=== PATIENT | female | born 1990 | race Two or more races ===

== ENCOUNTER 2018-10-30 11:03 | Inpatient (IN) | payer OTHER ==
[~2018-10-30] VITALS: Ht 160 cm; Wt 99.8 kg
[2018-10-30] MEDS ORDERED: PRENATAL CAPLE1 EAC1 PO (12:08)
[2018-10-30] MEDS ORDERED: IRON325 MG PO (12:08)
== END 2018-11-01 10:03 | disposition home or self-care (01) | DRG 833 ==
LOC: LDR 11:03 → OB/GYN 11:03
PROVIDERS: ADMIT Obstetrics & Gynecology
PROC: BY4FZZZ Ultrasonography of Third Trimester, Single Fetus (ICD-10-PCS; principal; 2018-10-30)
PROC: 4A1HXCZ Monitoring of Products of Conception, Cardiac Rate, External Approach (ICD-10-PCS; 2018-10-30)
DX: O47.03 False labor before 37 completed weeks of gestation, third trimester (principal); Z34.03 Encounter for supervision of normal first pregnancy, third trimester

== ENCOUNTER 2018-11-16 18:28 | Outpatient (CLI) | payer OTHER ==
[~2018-11-16 18:28] MED LIST: IRON325 MG PO; PRENATAL CAPLE1 EAC1 PO
[2018-11-17] MEDS ORDERED: KEFLEX500 MG PO (11:52)
== END 2018-11-17 13:34 | disposition home or self-care (01) ==
LOC: OBS/DEL 18:28
DX: O26.893 Other specified pregnancy related conditions, third trimester (principal); R10.2 Pelvic and perineal pain; Z34.83 Encounter for supervision of other normal pregnancy, third trimester

== ENCOUNTER 2018-11-25 05:59 | Inpatient (IN) | payer OTHER ==
[~2018-11-25] VITALS: Ht 160 cm; Wt 99.8 kg
[~2018-11-25 05:59] MED LIST changes: +KEFLEX500 MG PO; -PRENATAL CAPLE1 EAC1 PO
[2018-11-25] MEDS ORDERED: PRENATAL CAPLE1 EAC1 PO (08:12)
== END 2018-11-27 09:22 | disposition home or self-care (01) | DRG 807 ==
LOC: LDR 05:59 → OB/GYN 13:27
PROVIDERS: ADMIT Obstetrics & Gynecology
PROC: 10E0XZZ Delivery of Products of Conception, External Approach (ICD-10-PCS; principal; 2018-11-25)
PROC: 0HQ9XZZ Repair Perineum Skin, External Approach (ICD-10-PCS; 2018-11-25)
PROC: 10907ZC Drainage of Amniotic Fluid, Therapeutic from Products of Conception, Via Natural or Artificial Opening (ICD-10-PCS; 2018-11-25)
PROC: 3E0P7VZ Introduction of Hormone into Female Reproductive, Via Natural or Artificial Opening (ICD-10-PCS; 2018-11-25)
PROC: 3E033VJ Introduction of Other Hormone into Peripheral Vein, Percutaneous Approach (ICD-10-PCS; 2018-11-25)
PROC: 4A1HXCZ Monitoring of Products of Conception, Cardiac Rate, External Approach (ICD-10-PCS; 2018-11-25)
DX: O70.0 First degree perineal laceration during delivery (principal); Z37.0 Single live birth; Z3A.39 39 weeks gestation of pregnancy